=== PATIENT | female | born 1970 | race American Indian/Alaskan Native ===

== ENCOUNTER 2017-03-21 18:10 | Emergency (ER) | payer OTHER ==
[2017-03-21] MEDS ORDERED: TORADOL IM ONE (21:09)
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
[2017-03-21 22:09] VITALS: BP 170/99
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
== END 2017-03-21 22:26 | disposition home or self-care (01) ==
LOC: ED 18:10
DX: S13.4XXA Sprain of ligaments of cervical spine, initial encounter (principal); M25.572 Pain in left ankle and joints of left foot; I10 Essential (primary) hypertension; V89.2XXA Person injured in unspecified motor-vehicle accident, traffic, initial encounter; Y93.89 Activity, other specified; Y99.9 Unspecified external cause status; Y92.410 Unspecified street and highway as the place of occurrence of the external cause
CPT/HCPCS: 73610; 96372; 99283; J1885

== ENCOUNTER 2020-10-06 11:58 | Emergency (ER) | payer OTHER ==
[2020-10-06 12:12] VITALS: BP 180/101
[2020-10-06] MEDS ORDERED: ACETAMINOPHEN 325 MG TAB PO ONE (15:08)
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
== END 2020-10-06 16:41 | disposition home or self-care (01) ==
LOC: ED 11:58
DX: S16.1XXA Strain of muscle, fascia and tendon at neck level, initial encounter (principal); S80.11XA Contusion of right lower leg, initial encounter; V89.2XXA Person injured in unspecified motor-vehicle accident, traffic, initial encounter; Y93.89 Activity, other specified; Y92.89 Other specified places as the place of occurrence of the external cause; Y99.8 Other external cause status
CPT/HCPCS: 72040; 99283